=== PATIENT | female | born 1995 | race Two or more races ===

== ENCOUNTER 2017-02-05 13:02 | Inpatient (IN) | payer OTHER, MEDICAID ==
--- NOTE | 2017-02-05 13:20 | ER Document Report ---
ED Medical Screen (RME) - General Stated Complaint: PSYCH EVAL Notes: 31 yo female c/o suicidal thoughts. told therapist at [facility] she wanted to kill herself. + previous attempts. + plan. hx/o schizoaffective, bipolar, anxiety. Physical Exam - Vital signs Vitals: Temp Pulse Resp BP Pulse Ox 98.9 F 109 H 24 H 123/79 97 02/05/17 13:06 02/05/17 13:06 02/05/17 13:06 02/05/17 13:06 02/05/17 13:06 Course - Vital Signs Vital signs: Temp Pulse Resp BP Pulse Ox 98.9 F 109 H 24 H 123/79 97 02/05/17 13:06 02/05/17 13:06 02/05/17 13:06 02/05/17 13:06 02/05/17 13:06
--- NOTE | 2017-02-05 13:45 | EKG REPORT ---
SEVERITY:- ABNORMAL ECG - SINUS TACHYCARDIA NONSPECIFIC ST-T CHANGES- INFERIOR LEADS : Confirmed by: Kyle Roblero MD 05-Feb-2017 13:44:18
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
[2017-02-05 14:06] LABS: ABSOLUTE BASOPHILS # (AUTO) 0.1 10^3/uL (0.0-0.2); ABSOLUTE EOSINOPHILS # (AUTO) 0.9 10^3/uL (0.0-0.6); ABSOLUTE LYMPHOCYTES (AUTO) 1.6 10^3/uL (0.5-4.7); ABSOLUTE MONOCYTES (AUTO) 1.2 10^3/uL (0.1-1.4); ABSOLUTE NEUT (AUTO) 12.5 10^3/uL (1.7-8.2); BASOPHILS % (AUTO) 0.7 % (0-2); EOSINOPHILS % (AUTO) 5.6 % (0-6); HEMATOCRIT 37.4 % (36.0-47.0); HEMOGLOBIN 12.1 g/dL (12.0-15.5); HGB HCT DIFFERENCE -1.1; LYMPHOCYTES % (AUTO) 9.9 % (13-45); MEAN CORPUSCULAR HEMOGLOBIN 28.8 pg (27.0-33.4); MEAN CORPUSCULAR HGB CONC 32.3 g/dL (32.0-36.0); MEAN CORPUSCULAR VOLUME 89 fl (80-97); MONOCYTES % (AUTO) 7.4 % (3-13); RED BLOOD COUNT 4.21 10^6/uL (3.72-5.28); RED CELL DISTRIBUTION WIDTH 15.5 % (11.5-14.0); SEGMENTED NEUTROPHILS % (AUTO) 76.4 % (42-78); WHITE BLOOD COUNT 16.4 10^3/uL (4.0-10.5)
[2017-02-05 14:18] LABS: ALANINE AMINOTRANSFERASE 63 U/L (9-52); ALBUMIN 4.5 g/dL (3.5-5.0); ALCOHOL < 10 mg/dL (NONE DETECTED); ALKALINE PHOSPHATASE 130 U/L (38-126); ANION GAP 15 (5-19); ASPARTATE AMINO TRANSFERASE 31 U/L (14-36); BILIRUBIN,DIRECT 0.3 mg/dL (0.0-0.4); BILIRUBIN,TOTAL 0.4 mg/dL (0.2-1.3); BLOOD UREA NITROGEN 18 mg/dL (7-20); CALCIUM 10.3 mg/dL (8.4-10.2); CARBON DIOXIDE 22 mmol/L (22-30); CHLORIDE 113 mmol/L (98-107); CREATININE RESULT 2.33 mg/dL (0.52-1.25); GLUCOSE 97 mg/dL (75-110); POTASSIUM 3.9 mmol/L (3.6-5.0); SODIUM 150.2 mmol/L (137-145); TOTAL PROTEIN 8.1 g/dL (6.3-8.2)
[2017-02-05 14:36] LABS: APPEARANCE,URINE CLEAR; BILIRUBIN,URINE NEGATIVE (NEGATIVE); GLUCOSE, URINE NEGATIVE (NEGATIVE); KETONES,URINE NEGATIVE (NEGATIVE); LEUKOCYTE ESTERASE,URINE NEGATIVE (NEGATIVE); NITRITE,URINE NEGATIVE (NEGATIVE); PROTEIN,URINE NEGATIVE (NEGATIVE); URINE SPECIFIC GRAVITY 1.002; UROBILINOGEN,URINE NEGATIVE mg/dL (<2.0)
[2017-02-05 14:52] LABS: URINE BARBITURATES SCREEN NEGATIVE; URINE METHADONE SCREEN NEGATIVE; URINE OPIATES LOW NEGATIVE; URINE PHENCYCLIDINE SCREEN NEGATIVE
[2017-02-05 15:47] LABS: ADD ON TESTING BLD IN LAB ACKNOWLEDGE
[2017-02-05 16:05] LABS: CREATINE KINASE 126 U/L (30-135); LITHIUM 0.8 mEq/L (0.6-1.2); MAGNESIUM 2.6 mg/dL (1.6-2.3)
--- NOTE | 2017-02-05 17:00 | PSYCHOLOGICAL NOTE ---
Psych Note - Psych Note Psych Note: Pt states that she wants to commit suicide, states that she told her therapist this at [facility] and they called to bring her here. States that she has a hx of harming herself. States it hasnt happened recently. States that she does have a plan. States hx of schizoaffective, bipolar, and anxiety. Patient states that she came to [facility] because she is suicidal with a plan. Patient identifies wanting to cut her wrists and then her pills. Patient states that she put the knife to her wrist however "got scared" but has been getting "braver each day." Patient states that she is independent and wants to go to college however her parents will not let her. She continued disclosed that she never gets out and that her paternal grandmother recently had a stroke and she takes care of her. She continued to disclose that she gets excited if she is just going to the store. Patient states that she is 21 years old and should be able to get out and do things however her parents will not allow her to go out. He eats that her therapist has discussed vocational rehabilitation with her parents however her parents failed to follow through. She continue disclosed that she "just wants things to be done" and that she was feeling she was not "getting enough attention." Patient was unable to explain the statements further. Patient is alert and orientated to person, place, time and circumstance. Mood is euthymic with congruent affect. Patient endorses suicidal ideation with reported plan. Patient denies homicidal ideation. Patient denies auditory and visual hallucinations; no delusions are noted. Thought process is logical organized and linear. Conversational speech was within normal rate tone and prosody. Eye contact was well maintained. Intellectual abilities appear to be low average range. Attention and concentration are good. Insight, judgment, impulse control are poor. 300.00 (F41.9) unspecified anxiety disorder Per History Provided by Patient 295.70 (F25.0) schizoaffective disorder; bipolar type per history provided by patient Impression/plan: Patient is recommended to continue under IVC. Patient states she is suicidal with a plan. It is currently unclear patient's compliance with medications for her mental health. Patient will be reevaluated. Dr. Rogers was consulted on the care and management of this patient. Attending physician is in agreement with recommendations and disposition.
[2017-02-05] MEDS: NORMAL SALINE 1000 ML 1,000 ML IV PRN ×2 (19:14→21:05)
[2017-02-05] MEDS ORDERED: 1/2 NORMAL SALINE 2,000 ML IV ONE (20:50)
--- NOTE | 2017-02-05 21:21 | PDOC H&P ---
History of Present Illness Admission Date/PCP: 02/05/17 19:[address] [facility] Patient complains of: suicidal ideation History of Present Illness: KAMRAN MAGAÑA is a 21 year old female with underlying depression, and history of medication overdoses in the past, who presents to the emergency room for evaluation of above complaint. Was seen earlier today by psychiatry, and was placed on IVC precautions for suicidal ideation. Was sent to the emergency room for further evaluation. Workup in the emergency room revealed an elevated creatinine, with prior labs from May of last year at [facility] revealing a creatinine of 0.89. Emergency room physician has discussed the patient with on-call nephrology Dr. Melissa, who was comfortable having the patient managed at our facility and has recommended IV fluid along with renal ultrasound, which has been ordered by the emergency room physician. She states she is compliant with her medications. States her lithium dose may recently have been increased. Denies any medication overdose other than in the past, as noted above. Other than her suicidal ideation, patient has no specific complaints in terms of fever or chills. Occasional nausea and vomiting, but none for the past 3 weeks. She describes a two-year history of intermittent episodes of diarrhea. 2 episodes over the last 24 hours, with what she describes as "blotches" of bright red blood in each of these last 2 episodes. She is scheduled to have her first colonoscopy in March of this year. Patient has been discussed with emergency room physician who evaluated the patient. . Laboratory results are listed in [place] and are reviewed. X-ray summary--renal ultrasound has been ordered and is pending. EKG reviewed. No old EKG available for comparison. Social history/personal habits: Single. No children. Unemployed. Lives with her mother and stepfather. No use of tobacco alcohol or illicit drugs. Allergies/adverse reactions are listed in [place] and are reviewed. Home medications are reviewed and are to be reconciled by senior pharmacy technician in [place]. Home medications initially autopopulated into [facility] may not accurately reflect patient's true medications, dosages, and/or frequencies. ER has listed recommended meds per Psych in his notes. REVIEW OF SYSTEMS: Constitutional: No fever or chills. Eyes: No current vision complaints. ENT: Occasional mild dysphagia without aspiration, she feels secondary to long- standing reflux and heartburn. No hearing problems or complaints. Pulmonary: No current complaints. Cardiovascular: No current complaints, including chest pain. Gastrointestinal: Occasional reflux symptoms. Skin: No current complaints, including rashes. Hematologic: No unusual easy bruising or bleeding. Neurologic: No current complaints, including numbness or tingling. Musculoskeletal: No current complaints, including painful joints. Psychiatric: See history and present illness. Endocrine: No current complaints, including polyuria. Genitourinary: No current complaints, including dysuria. PHYSICAL EXAMINATION: 5 feet 4 inches tall. 102.5 kg. BMI 38.8 kg/m.Temperature 98.9. Pulse 109 and regular. Blood pressure 123/79. Respirations are 24 and unlabored. 97% saturation on room air. Obese otherwise well-developed female appearing approximately her stated age. Pleasant awake alert and cooperative. Somewhat anxious, and mildly tremulous, although no august agitation. Female emergency room sitter Liliane is present. Skin is warm and dry. No grossly obvious evidence of rash in areas of skin examined. No subcutaneous nodules palpated. ENT: Hearing grossly normal to normal conversation. Tongue midline on protrusion pink and slightly moist. Eyes: No scleral icterus. Pupils equal and reactive to light at 4 mm. [place] conjunctivae. Neck is supple and nontender to gentle active range of motion and palpation. Midline trachea. No palpable thyroid nodule mass enlargement or tenderness. Lymphatic: No palpable cervical or clavicular nodes. Neck and lymphatic exams limited by patient body habitus. Psychiatric: Reasonable insight into acute and chronic medical issues. Oriented to time location and why here. Lungs: Auscultation reveals clear and equal breath sounds bilaterally. No use of accessory respiratory muscles. Cardiovascular: Heart regular rate and rhythm, without gallop murmur or rub. No carotid or abdominal aortic bruits. No ankle or pedal edema. Faintly palpable dorsalis pedis pulses. Abdomen: soft, obese, nontender with positive bowel sounds. Unable to adequately evaluate abdomen for masses or organomegaly due to body habitus. Extremities: Feet are warm and dry. No calf tenderness to compression. No grossly obvious visual evidence of calf swelling. Gentle manipulation of lower extremities fails to reveal any obvious evidence of injury or instability to knees hips or ankles. Neurologic: Moves all 4 extremities grossly normally. Patellar reflexes 2+ and symmetric.. Absent Babinski. Light touch is intact at feet. Dorsiflexion and plantarflexion of feet 5 / 5 and symmetric. No rigidity. No ankle clonus. Past Medical History Cardiac Medical History: Denies: Congestive Heart Failure, DVT, Myocardial Infarction, Hyperlipidema, Hypertension, Pulmonary Embolism Pulmonary Medical History: Denies: Asthma, Chronic Obstructive Pulmonary Disease (COPD) EENT Medical History: Reports: Throat - Occasional mild dysphagia without aspiration, secondary to reflux, per patient. Denies: Eyes, Ears Neurological Medical History: Denies: Hemorrhagic CVA, Ischemic CVA, Seizures Endocrine Medical History: Denies: Diabetes Mellitus Type 1, Diabetes Mellitus Type 2, Hyperthyroidism, Hypothyroidism Renal/ Medical History: Reports: None GI Medical History: Reports: Gastroesophageal Reflux Disease, Other - Chronic intermittent diarrhea for 2 years. Recent "blotches" of bright red blood in stool. Intermittent nausea for the past year or so. None for 3 weeks. Denies: Cirrhosis, Hepatitis, Peptic Ulcer Disease Musculoskeltal Medical History: Reports: None Skin Medical History: Reports: None Psychiatric Medical History: Reports: Bipolar Disorder, Depression Denies: Alcohol Dependency, Substance Abuse, Tobacco Dependency Hematology: Reports: None Infectious Medical History: Denies: Hepatitis B, Hepatitis C Past Surgical History Past Surgical History: Reports: None Social History Information Source: Patient, Emergency Med Personnel, [facility] Records Lives with: Family Smoking Status: Never Smoker Frequency of Alcohol Use: Rare Drugs: None - Advance Directive Resuscitation Status: Full Code Surrogate healthcare decision maker:: Mother Family History Family History: Reviewed & Not Pertinent Parental Family History Reviewed: Yes Children Family History Reviewed: NA Sibling(s) Family History Reviewed.: Yes Medication/Allergy Home Medications: Aripiprazole [Abilify 30 MG Tablet] 30 mg PO QHS 02/05/17 Aripiprazole [Abilify] 15 mg PO QAM 02/05/17 Benztropine Mesylate [Cogentin 1 mg Tablet] 1 mg PO BID 02/05/17 Haloperidol [Haldol 5 mg Tablet] 5 mg PO BID 02/05/17 Haloperidol [Haldol 5 mg Tablet] 7.5 mg PO QHS 02/05/17 Hydroxyzine HCl [Atarax 25 mg Tablet] 25 mg PO TIDP PRN 02/05/17 [place]on Carbonate [Lennon Carbonate ER] 300 mg PO QAM 02/05/17 Lennon Carbonate [Lennon Carbonate ER] 900 mg PO QPM 02/05/17 Pantoprazole Sodium [Protonix] 40 mg PO DAILY 02/05/17 Quetiapine Fumarate [Seroquel] 25 mg PO DAILYP PRN 02/05/17 Allergies/Adverse Reactions: zolpidem [From Ambien] Adverse Reaction (Verified 02/05/17 21:05) feels "loopy" ssri Adverse Reaction (Unknown, Uncoded 02/05/17 21:05) worsening depression Physical Exam Vital Signs: Temp Pulse Resp BP Pulse Ox 98.9 F 109 H 24 H 123/79 97 02/05/17 13:06 02/05/17 13:06 02/05/17 13:06 02/05/17 13:06 02/05/17 13:06 Assessment & Plan - Diagnosis (1) ARF (acute renal failure) Qualifiers: Acute renal failure type: unspecified Qualified Code(s): N17.9 - Acute kidney failure, unspecified Is this a current diagnosis for this admission?: YesPlan: Uncertain etiology. Possibly prerenal. According to emergency room physician, Dr. Melissa, manufacturing production technician nephrology, did not feel current medications would likely lead to renal failure. IV fluids. Follow-up chemistry. Renal ultrasound. I have strongly encouraged patient to be careful getting out of bed , to avoid a fall with injury. Knee high SCDs for DVT prophylaxis, with recent notation of bright red blood and diarrhea, will forego Lovenox or heparin at this point in time. Also, patient will be up ad memo. Impression and plans were discussed with patient, who concurs. Time spent in evaluation and management of patient: 64 minutes. (2) Elevated LFTs Is this a current diagnosis for this admission?: YesPlan: Mild. Follow-up chemistry. (3) Hypernatremia Is this a current diagnosis for this admission?: YesPlan: Follow-up chemistry. (4) Rectal bleeding Is this a current diagnosis for this admission?: YesPlan: No ongoing evidence of active bleeding at the present time. Follow-up CBC. PT/ INR and PTT also. As noted above, will hold Lovenox or heparin at this point in time. (5) Suicidal ideation Is this a current diagnosis for this admission?: YesPlan: Suicide precautions. Psychiatric consult. IVC papers on chart. (6) Depression Qualifiers: Depression Type: unspecified Qualified Code(s): F32.9 - Major depressive disorder, single episode, unspecified Is this a current diagnosis for this admission?: YesPlan: Resume home medications as appropriate once these have been determined and reviewed. (7) Schizoaffective disorder Qualifiers: Schizoaffective disorder type: unspecified Qualified Code(s): F25.9 - Schizoaffective disorder, unspecified Is this a current diagnosis for this admission?: YesPlan: Resume home medications as appropriate once these have been determined and reviewed. - Inpatient Certification Based on my medical assessment, after consideration of the patient's comorbidities, presenting symptoms, or acuity I expect that the services needed warrant INPATIENT care.: Yes I certify that my determination is in accordance with my understanding of Medicare's requirements for reasonable and necessary INPATIENT services [42 CFR 412.3e].: Yes Medical Necessity: Need Close Monitoring Due to Risk of Patient Decompensation, Need For IV Fluids, Need For Continuous Telemetry Monitoring, Risk of Complication if Not Cared For in Hospital, Risk of Diagnosis Which Will Require Inpatient Eval/Care/Monitoring Post Hospital Care: D/C or Transfer Summary
[2017-02-05 22:40] LABS: ABSOLUTE BASOPHILS # (AUTO) 0.1 10^3/uL (0.0-0.2); ABSOLUTE EOSINOPHILS # (AUTO) 0.8 10^3/uL (0.0-0.6); ABSOLUTE MONOCYTES (AUTO) 1.2 10^3/uL (0.1-1.4); ABSOLUTE NEUT (AUTO) 11.6 10^3/uL (1.7-8.2); BASOPHILS % (AUTO) 0.9 % (0-2); EOSINOPHILS % (AUTO) 5.2 % (0-6); HEMATOCRIT 35.2 % (36.0-47.0); HEMOGLOBIN 11.1 g/dL (12.0-15.5); HGB HCT DIFFERENCE -1.9; LYMPHOCYTES % (AUTO) 12.8 % (13-45); MEAN CORPUSCULAR HEMOGLOBIN 28.4 pg (27.0-33.4); MEAN CORPUSCULAR HGB CONC 31.6 g/dL (32.0-36.0); MEAN CORPUSCULAR VOLUME 90 fl (80-97); MONOCYTES % (AUTO) 7.4 % (3-13); RED BLOOD COUNT 3.91 10^6/uL (3.72-5.28); RED CELL DISTRIBUTION WIDTH 15.7 % (11.5-14.0); SEGMENTED NEUTROPHILS % (AUTO) 73.7 % (42-78); WHITE BLOOD COUNT 15.8 10^3/uL (4.0-10.5)
[2017-02-05 22:54] LABS: PARTIAL THROMBOPLASTIN TIME 29.7 SEC (23.5-35.8); PROTHROMBIN TIME 13.5 SEC (11.4-15.4)
[2017-02-05 23:00] LABS: ANION GAP 12 (5-19); BLOOD UREA NITROGEN 18 mg/dL (7-20); CALCIUM 9.6 mg/dL (8.4-10.2); CARBON DIOXIDE 20 mmol/L (22-30); CHLORIDE 120 mmol/L (98-107); CREATININE RESULT 2.15 mg/dL (0.52-1.25); GLUCOSE 91 mg/dL (75-110); POTASSIUM 4.6 mmol/L (3.6-5.0); SODIUM 151.9 mmol/L (137-145)
[2017-02-05] MEDS: 1/2 NORMAL SALINE 1,000 ML IV PRN (23:32)
[2017-02-06] MEDS: 1/2 NORMAL SALINE 1,000 ML IV PRN ×4 (02:55→14:54)
[2017-02-06] MEDS: ACETAMINOPHEN 325 MG TABLET PO PRN ×3 (03:13→17:47)
[2017-02-06 06:54] LABS: ABSOLUTE BASOPHILS # (AUTO) 0.1 10^3/uL (0.0-0.2); ABSOLUTE EOSINOPHILS # (AUTO) 0.7 10^3/uL (0.0-0.6); ABSOLUTE MONOCYTES (AUTO) 0.9 10^3/uL (0.1-1.4); ABSOLUTE NEUT (AUTO) 8.8 10^3/uL (1.7-8.2); BASOPHILS % (AUTO) 0.8 % (0-2); EOSINOPHILS % (AUTO) 5.8 % (0-6); HEMATOCRIT 30.9 % (36.0-47.0); HEMOGLOBIN 10.2 g/dL (12.0-15.5); HGB HCT DIFFERENCE -0.3; LYMPHOCYTES % (AUTO) 15.7 % (13-45); MEAN CORPUSCULAR HEMOGLOBIN 29.6 pg (27.0-33.4); MEAN CORPUSCULAR HGB CONC 33.1 g/dL (32.0-36.0); MEAN CORPUSCULAR VOLUME 89 fl (80-97); MONOCYTES % (AUTO) 7.4 % (3-13); RED BLOOD COUNT 3.46 10^6/uL (3.72-5.28); RED CELL DISTRIBUTION WIDTH 15.7 % (11.5-14.0); SEGMENTED NEUTROPHILS % (AUTO) 70.3 % (42-78); WHITE BLOOD COUNT 12.6 10^3/uL (4.0-10.5)
[2017-02-06 07:08] LABS: ALANINE AMINOTRANSFERASE 55 U/L (9-52); ALKALINE PHOSPHATASE 91 U/L (38-126); ANION GAP 13 (5-19); ASPARTATE AMINO TRANSFERASE 24 U/L (14-36); BILIRUBIN,DIRECT 0.3 mg/dL (0.0-0.4); BILIRUBIN,TOTAL 0.3 mg/dL (0.2-1.3); BLOOD UREA NITROGEN 15 mg/dL (7-20); CALCIUM 8.5 mg/dL (8.4-10.2); CARBON DIOXIDE 16 mmol/L (22-30); CHLORIDE 122 mmol/L (98-107); CREATININE RESULT 2.03 mg/dL (0.52-1.25); GLUCOSE 93 mg/dL (75-110); POTASSIUM 3.9 mmol/L (3.6-5.0); SODIUM 150.8 mmol/L (137-145); TOTAL PROTEIN 5.9 g/dL (6.3-8.2)
[2017-02-06] MEDS ORDERED: (PENDING PHARMACY ID) (Hydroxyzine Hcl [Atarax 25 Mg Tablet] 25 MG) PO PRN (11:25)
--- NOTE | 2017-02-06 11:37 | PDOC PROGRESS REPORT ---
Subjective Progress Note for:: 02/06/17 Subjective:: Patient is drowsy but arousable. She has no complaints. She denies suicidal ideation at this time, but was sent over from psychiatry on involuntary commitment for suicidal ideation. She states that she has on high-dose lithium and this is been making her feel very thirsty. She has had generalized weakness for very long time. Patient denies fever, chills, headache, new focal weakness, chest pain, shortness of breath, abdominal pain, nausea, vomiting, diarrhea, constipation. Physical Exam Vital Signs: Temp Pulse Resp BP Pulse Ox 97.7 F 92 16 102/70 100 02/06/17 07:48 02/06/17 07:48 02/06/17 07:48 02/06/17 07:48 02/06/17 07:48 Intake & Output 02/05/17 02/06/17 02/07/17 06:59 06:59 06:59 Intake Total 670 Balance 670 Weight 103.1 kg GENERAL: No acute distress, obese HEENT: Conjunctiva clear, nonicteric, moist mucous membranes, no JVD, midline trachea RESPIRATORY: Clear to auscultation bilaterally, no wheezes, no rhonchi CARDIAC: Regular rate and rhythm, no murmurs/gallops/rubs ABDOMEN: Soft, nondistended, nontender, positive bowel sounds, no rebound, no guarding EXTREMETIES: No edema, cyanosis, clubbing NEUROLOGIC: Drowsy, oriented to person/place/time, CN's grossly intact, no focal deficits SKIN: No rash, wounds PSYCH: Depressed mood, flat affect Results Laboratory Results: 02/06/17 06:25 02/06/17 06:25 02/05/17 02/05/17 02/05/17 22:20 22:20 22:20 WBC 15.8 H RBC 3.91 Hgb 11.1 L Hct 35.2 L MCV 90 MCH 28.4 MCHC 31.6 L RDW 15.7 H Plt Count 351 Seg Neutrophils % 73.7 Lymphocytes % 12.8 L Monocytes % 7.4 Eosinophils % 5.2 Basophils % 0.9 Absolute Neutrophils 11.6 H Absolute Lymphocytes 2.0 Absolute Monocytes 1.2 Absolute Eosinophils 0.8 H Absolute Basophils 0.1 Sodium 151.9 H Potassium 4.6 Chloride 120 H Carbon Dioxide 20 L Anion Gap 12 BUN 18 Creatinine 2.15 H Est GFR ( Amer) 34 L Est GFR (Non-Af Amer) 28 L Glucose 91 Calcium 9.6 Total Bilirubin AST ALT Alkaline Phosphatase Total Protein Albumin TSH 3.65 02/06/17 02/06/17 06:25 06:25 WBC 12.6 H RBC 3.46 L Hgb 10.2 L Hct 30.9 L MCV 89 MCH 29.6 MCHC 33.1 RDW 15.7 H Plt Count 318 Seg Neutrophils % 70.3 Lymphocytes % 15.7 Monocytes % 7.4 Eosinophils % 5.8 Basophils % 0.8 Absolute Neutrophils 8.8 H Absolute Lymphocytes 2.0 Absolute Monocytes 0.9 Absolute Eosinophils 0.7 H Absolute Basophils 0.1 Sodium 150.8 H Potassium 3.9 Chloride 122 H Carbon Dioxide 16 L Anion Gap 13 BUN 15 Creatinine 2.03 H Est GFR ( Amer) 37 L Est GFR (Non-Af Amer) 30 L Glucose 93 Calcium 8.5 Total Bilirubin 0.3 AST 24 ALT 55 H Alkaline Phosphatase 91 Total Protein 5.9 L Albumin 3.0 L TSH Impressions: Renal Ultrasound 02/05/17 19:28 IMPRESSION: Minimal fullness of the left renal pelvis and I cannot exclude mild hydronephrosis. No other significant finding. Assessment & Plan - Diagnosis (1) Suicidal ideation Is this a current diagnosis for this admission?: YesPlan: Continue involuntary commitment. Consult Dr. Rogers of psychology. (2) ARF (acute renal failure) Qualifiers: Acute renal failure type: unspecified Qualified Code(s): N17.9 - Acute kidney failure, unspecified Is this a current diagnosis for this admission?: YesPlan: Likely secondary to dehydration and possibly lithium toxicity. Hold lithium. Continue IV fluids. Kidney function improving. (3) Dehydration Is this a current diagnosis for this admission?: YesPlan: Continue IV fluids. Monitor chemistry panel. (4) Depression Is this a current diagnosis for this admission?: YesPlan: Continue Abilify, Haldol. Hold Seroquel at this point as I'm concerned about patient being on 3 different antipsychotics. Hold lithium secondary to renal failure. Patient has been placed on involuntary commitment by psychiatry. (5) Hypernatremia Is this a current diagnosis for this admission?: YesPlan: Likely secondary to dehydration. Continue fluid resuscitation with hypotonic saline. (6) Rectal bleeding Is this a current diagnosis for this admission?: Yes - Time Time Spent with patient: 35 or more minutes
[2017-02-06] MEDS ORDERED: HYDROXYZINE PAMOATE 25 MG CAPSULE PO PRN (12:00)
[2017-02-06] MEDS ORDERED: LANSOPRAZOLE 30 MG TAB.RAP.DR PO ONE (13:00)
[2017-02-06] MEDS: BENZTROPINE MESYLATE 1 MG TABLET PO SCH (17:43)
[2017-02-06] MEDS: HALOPERIDOL 5 MG TABLET PO SCH ×2 (17:44→21:22)
[2017-02-06] MEDS: ARIPIPRAZOLE 5 MG TABLET PO SCH (21:22)
[2017-02-07] MEDS: ACETAMINOPHEN 325 MG TABLET PO PRN ×2 (02:01→12:10)
[2017-02-07] MEDS: 1/2 NORMAL SALINE 1,000 ML IV PRN ×2 (02:02→18:58)
[2017-02-07] MEDS: LANSOPRAZOLE 30 MG TAB.RAP.DR PO SCH (05:10)
[2017-02-07 05:16] LABS: ABSOLUTE BASOPHILS # (AUTO) 0.1 10^3/uL (0.0-0.2); ABSOLUTE EOSINOPHILS # (AUTO) 0.7 10^3/uL (0.0-0.6); ABSOLUTE LYMPHOCYTES (AUTO) 1.8 10^3/uL (0.5-4.7); ABSOLUTE MONOCYTES (AUTO) 0.7 10^3/uL (0.1-1.4); ABSOLUTE NEUT (AUTO) 7.8 10^3/uL (1.7-8.2); BASOPHILS % (AUTO) 0.6 % (0-2); EOSINOPHILS % (AUTO) 6.5 % (0-6); HEMATOCRIT 31.6 % (36.0-47.0); HEMOGLOBIN 10.2 g/dL (12.0-15.5); LYMPHOCYTES % (AUTO) 16.1 % (13-45); MEAN CORPUSCULAR HGB CONC 32.3 g/dL (32.0-36.0); MEAN CORPUSCULAR VOLUME 90 fl (80-97); MONOCYTES % (AUTO) 6.6 % (3-13); RED BLOOD COUNT 3.53 10^6/uL (3.72-5.28); RED CELL DISTRIBUTION WIDTH 15.8 % (11.5-14.0); SEGMENTED NEUTROPHILS % (AUTO) 70.2 % (42-78); WHITE BLOOD COUNT 11.2 10^3/uL (4.0-10.5)
[2017-02-07 05:39] LABS: ALANINE AMINOTRANSFERASE 53 U/L (9-52); ALBUMIN 3.1 g/dL (3.5-5.0); ALKALINE PHOSPHATASE 97 U/L (38-126); ANION GAP 13 (5-19); ASPARTATE AMINO TRANSFERASE 23 U/L (14-36); BILIRUBIN,DIRECT 0.2 mg/dL (0.0-0.4); BILIRUBIN,TOTAL 0.3 mg/dL (0.2-1.3); BLOOD UREA NITROGEN 12 mg/dL (7-20); CALCIUM 9.1 mg/dL (8.4-10.2); CARBON DIOXIDE 15 mmol/L (22-30); CHLORIDE 123 mmol/L (98-107); CREATININE RESULT 1.83 mg/dL (0.52-1.25); GLUCOSE 94 mg/dL (75-110); MAGNESIUM 2.3 mg/dL (1.6-2.3); POTASSIUM 3.9 mmol/L (3.6-5.0); SODIUM 150.9 mmol/L (137-145); TOTAL PROTEIN 6.1 g/dL (6.3-8.2)
[2017-02-07] MEDS ORDERED: (PENDING PHARMACY ID) (Aripiprazole [Abilify 30 Mg Tablet] 15 MG) PO SCH (08:00)
[2017-02-07] MEDS: HALOPERIDOL 5 MG TABLET PO SCH ×3 (09:32→22:06)
[2017-02-07] MEDS: ARIPIPRAZOLE 5 MG TABLET PO SCH ×2 (09:32→22:06)
[2017-02-07] MEDS: BENZTROPINE MESYLATE 1 MG TABLET PO SCH ×2 (09:32→17:43)
--- NOTE | 2017-02-07 22:01 | PDOC PROGRESS REPORT ---
Subjective Progress Note for:: 02/07/17 Subjective:: Patient has no new complaints. Denies SI, but affect unusual. C/o cough, nasal congestion. Patient denies fever, chills, headache, new focal weakness, chest pain, shortness of breath, abdominal pain, nausea, vomiting, diarrhea, constipation. Physical Exam Vital Signs: Temp Pulse Resp BP Pulse Ox 98.2 F 102 H 19 118/75 100 02/07/17 19:53 02/07/17 19:53 02/07/17 19:53 02/07/17 19:53 02/07/17 19:53 Intake & Output 02/06/17 02/07/17 02/08/17 06:59 06:59 06:59 Intake Total 670 52544 3646 Balance 670 09322 3646 Weight 103.1 kg 102.5 kg GENERAL: No acute distress, obese HEENT: Conjunctiva clear, nonicteric, moist mucous membranes, no JVD, midline trachea RESPIRATORY: Clear to auscultation bilaterally, no wheezes, no rhonchi CARDIAC: Regular rate and rhythm, no murmurs/gallops/rubs ABDOMEN: Soft, nondistended, nontender, positive bowel sounds, no rebound, no guarding EXTREMETIES: No edema, cyanosis, clubbing NEUROLOGIC: Alert, oriented to person/place/time, CN's grossly intact, no focal deficits SKIN: No rash, wounds PSYCH: Depressed mood, flat affect Results Laboratory Results: 02/07/17 04:06 02/07/17 04:06 02/07/17 02/07/17 02/07/17 04:06 04:06 09:13 WBC 11.2 H RBC 3.53 L Hgb 10.2 L Hct 31.6 L MCV 90 MCH 29.0 MCHC 32.3 RDW 15.8 H Plt Count 336 Seg Neutrophils % 70.2 Lymphocytes % 16.1 Monocytes % 6.6 Eosinophils % 6.5 H Basophils % 0.6 Absolute Neutrophils 7.8 Absolute Lymphocytes 1.8 Absolute Monocytes 0.7 Absolute Eosinophils 0.7 H Absolute Basophils 0.1 Sodium 150.9 H Potassium 3.9 Chloride 123 H Carbon Dioxide 15 L Anion Gap 13 BUN 12 Creatinine 1.83 H Est GFR ( Amer) 41 L Est GFR (Non-Af Amer) 34 L Glucose 94 Calcium 9.1 Magnesium 2.3 Total Bilirubin 0.3 AST 23 ALT 53 H Alkaline Phosphatase 97 Total Protein 6.1 L Albumin 3.1 L Stool Occult Blood NEGATIVE Impressions: Renal Ultrasound 02/05/17 19:28 IMPRESSION: Minimal fullness of the left renal pelvis and I cannot exclude mild hydronephrosis. No other significant finding. Chest X-Ray 02/07/17 13:27 IMPRESSION: NO ACUTE RADIOGRAPHIC FINDING IN THE CHEST. Assessment & Plan - Diagnosis (1) Suicidal ideation Is this a current diagnosis for this admission?: YesPlan: Continue involuntary commitment. Consult Dr. Rogers of psychology. (2) ARF (acute renal failure) Qualifiers: Acute renal failure type: unspecified Qualified Code(s): N17.9 - Acute kidney failure, unspecified Is this a current diagnosis for this admission?: YesPlan: Likely secondary to dehydration and possibly lithium toxicity. Hold lithium. Continue IV fluids. Kidney function improving. (3) Dehydration Is this a current diagnosis for this admission?: YesPlan: Continue IV fluids. Monitor chemistry panel. (4) Depression Is this a current diagnosis for this admission?: YesPlan: Continue Abilify, Haldol. Hold Seroquel at this point as I'm concerned about patient being on 3 different antipsychotics. Hold lithium secondary to renal failure. Patient has been placed on involuntary commitment by psychiatry. (5) Hypernatremia Is this a current diagnosis for this admission?: YesPlan: Likely secondary to dehydration. Continue fluid resuscitation with hypotonic saline. (6) Rectal bleeding Is this a current diagnosis for this admission?: YesPlan: Outpatient GI workup. H/H low but stable. (7) Allergic sinusitis Is this a current diagnosis for this admission?: YesPlan: Start Flonase. - Time Time Spent with patient: 25-34 minutes Anticipated discharge: Other - Inpatient psych Within: within 72 hours
[2017-02-07] MEDS: FLUTICASONE NASAL SPRAY 50 MCG/SPRY 120 SPRAY/16 GM NASL SCH (22:07)
[2017-02-07] MEDS: GUAIFENESIN 600 MG TABLET.SA PO SCH (22:08)
[2017-02-08] MEDS: 1/2 NORMAL SALINE 1,000 ML IV PRN ×4 (01:39→21:09)
[2017-02-08] MEDS: LANSOPRAZOLE 30 MG TAB.RAP.DR PO SCH (05:27)
[2017-02-08 06:35] LABS: ABSOLUTE BASOPHILS # (AUTO) 0.1 10^3/uL (0.0-0.2); ABSOLUTE EOSINOPHILS # (AUTO) 0.7 10^3/uL (0.0-0.6); ABSOLUTE LYMPHOCYTES (AUTO) 1.9 10^3/uL (0.5-4.7); ABSOLUTE MONOCYTES (AUTO) 0.8 10^3/uL (0.1-1.4); ABSOLUTE NEUT (AUTO) 8.2 10^3/uL (1.7-8.2); BASOPHILS % (AUTO) 0.6 % (0-2); EOSINOPHILS % (AUTO) 6.2 % (0-6); HEMATOCRIT 33.9 % (36.0-47.0); HEMOGLOBIN 10.8 g/dL (12.0-15.5); HGB HCT DIFFERENCE -1.5; LYMPHOCYTES % (AUTO) 16.3 % (13-45); MEAN CORPUSCULAR HEMOGLOBIN 28.7 pg (27.0-33.4); MEAN CORPUSCULAR VOLUME 90 fl (80-97); MONOCYTES % (AUTO) 6.8 % (3-13); RED BLOOD COUNT 3.77 10^6/uL (3.72-5.28); RED CELL DISTRIBUTION WIDTH 15.4 % (11.5-14.0); SEGMENTED NEUTROPHILS % (AUTO) 70.1 % (42-78); WHITE BLOOD COUNT 11.7 10^3/uL (4.0-10.5)
[2017-02-08 06:54] LABS: ANION GAP 14 (5-19); BLOOD UREA NITROGEN 11 mg/dL (7-20); CALCIUM 9.6 mg/dL (8.4-10.2); CARBON DIOXIDE 16 mmol/L (22-30); CHLORIDE 123 mmol/L (98-107); CREATININE RESULT 1.95 mg/dL (0.52-1.25); GLUCOSE 92 mg/dL (75-110); SODIUM 152.7 mmol/L (137-145)
--- NOTE | 2017-02-08 07:06 | PSYCHOLOGICAL NOTE ---
Psych Note - Psych Note Psych Note: Pt states that she wants to commit suicide, states that she told her therapist this at [facility] and they called to bring her here. States that she has a hx of harming herself. States it hasnt happened recently. States that she does have a plan. States hx of schizoaffective, bipolar, and anxiety. Clinician conducted a chart review; patient has been admitted to hospital for kidney failure. At this time she is not medically clear. No new concerns are noted, re-evaluation will be conducted. 300.00 (F41.9) unspecified anxiety disorder Per History Provided by Patient 295.70 (F25.0) schizoaffective disorder; bipolar type per history provided by patient Impression/plan: Patient is recommended to continue under IVC. Patient has stated she is suicidal with a plan. It is currently unclear patient's compliance with medications for her mental health. Patient will be reevaluated. Dr. Rogers was consulted on the care and management of this patient. Attending physician is in agreement with recommendations and disposition.
--- NOTE | 2017-02-08 07:21 | PSYCHOLOGICAL NOTE ---
Psych Note - Psych Note Psych Note: Pt states that she wants to commit suicide, states that she told her therapist this at [facility] and they called to bring her here. States that she has a hx of harming herself. States it hasnt happened recently. States that she does have a plan. States hx of schizoaffective, bipolar, and anxiety. Patient states that she does not have suicidal thoughts anymore. She continued to state that he thinks it might have been from feeling sick because of her kidneys. She states she was throwing up and in pain and thinks this is why she came to the ED. The patient again denies taking her medication incorrectly and states that the last time she overdoes was about one year ago. Clinician spoke with attending MD, patient will not be medically cleared possibly Friday. Patient is alert and orientated to person, place, time and circumstance. Mood is euthymic with congruent affect. Patient denies suicidal ideation. Patient denies homicidal ideation. Patient denies auditory and visual hallucinations; no delusions are noted. Thought process is logical organized and linear. Conversational speech was within normal rate tone and prosody. Eye contact was well maintained. Intellectual abilities appear to be low average range. Attention and concentration are good. Insight, judgment, impulse control are poor. 300.00 (F41.9) unspecified anxiety disorder Per History Provided by Patient 295.70 (F25.0) schizoaffective disorder; bipolar type per history provided by patient Impression/plan: Patient is recommended to continue under IVC. Patient stated she is suicidal with a plan when coming to ED. It is currently unclear patient' s compliance with medications for her mental health. Patient has extensive history of overdosing and mental health visits to [facility]. Patient will be reevaluated. Dr. Rogers was consulted on the care and management of this patient. Attending physician is in agreement with recommendations and disposition.
[2017-02-08] MEDS: HALOPERIDOL 5 MG TABLET PO SCH ×3 (09:15→21:08)
[2017-02-08] MEDS: BENZTROPINE MESYLATE 1 MG TABLET PO SCH ×2 (09:15→17:30)
[2017-02-08] MEDS: ARIPIPRAZOLE 5 MG TABLET PO SCH ×2 (09:16→21:08)
[2017-02-08] MEDS: GUAIFENESIN 600 MG TABLET.SA PO SCH ×2 (09:17→21:09)
[2017-02-08] MEDS: FLUTICASONE NASAL SPRAY 50 MCG/SPRY 120 SPRAY/16 GM NASL SCH ×2 (09:17→21:09)
--- NOTE | 2017-02-08 19:19 | PDOC PROGRESS REPORT ---
Subjective Progress Note for:: 02/08/17 Subjective:: The patient feels better. She believes the lithium had caused her symptomatology. She denies any new symptoms. Physical Exam Vital Signs: Temp Pulse Resp BP Pulse Ox 98.3 F 100 20 117/71 100 02/08/17 14:59 02/08/17 14:59 02/08/17 14:59 02/08/17 14:59 02/08/17 14:59 Intake & Output 02/07/17 02/08/17 02/09/17 06:59 06:59 06:59 Intake Total 95593 6807 3163 Balance 93381 6807 3163 Weight 102.5 kg Additional comments: GENERAL: No acute distress, obese HEENT: Conjunctiva clear, nonicteric, moist mucous membranes, no JVD, midline trachea RESPIRATORY: Clear to auscultation bilaterally, no wheezes, no rhonchi CARDIAC: Regular rate and rhythm, no murmurs/gallops/rubs ABDOMEN: Soft, nondistended, nontender, positive bowel sounds, no rebound, no guarding EXTREMETIES: No edema, cyanosis, clubbing NEUROLOGIC: Alert, oriented to person/place/time, CN's grossly intact, no focal deficits SKIN: No rash, wounds PSYCH: mood and affect seem normal Results Laboratory Results: 02/08/17 05:13 02/08/17 05:13 02/08/17 02/08/17 05:13 05:13 WBC 11.7 H RBC 3.77 Hgb 10.8 L Hct 33.9 L MCV 90 MCH 28.7 MCHC 32.0 RDW 15.4 H Plt Count 365 Seg Neutrophils % 70.1 Lymphocytes % 16.3 Monocytes % 6.8 Eosinophils % 6.2 H Basophils % 0.6 Absolute Neutrophils 8.2 Absolute Lymphocytes 1.9 Absolute Monocytes 0.8 Absolute Eosinophils 0.7 H Absolute Basophils 0.1 Sodium 152.7 H Potassium 4.0 Chloride 123 H Carbon Dioxide 16 L Anion Gap 14 BUN 11 Creatinine 1.95 H Est GFR ( Amer) 38 L Est GFR (Non-Af Amer) 32 L Glucose 92 Calcium 9.6 Impressions: Renal Ultrasound 02/05/17 19:28 IMPRESSION: Minimal fullness of the left renal pelvis and I cannot exclude mild hydronephrosis. No other significant finding. Chest X-Ray 02/07/17 13:27 IMPRESSION: NO ACUTE RADIOGRAPHIC FINDING IN THE CHEST. Assessment & Plan - Diagnosis (1) Suicidal ideation Is this a current diagnosis for this admission?: YesPlan: Seemingly resolved. This could have been a lithium intoxication. (2) ARF (acute renal failure) Qualifiers: Acute renal failure type: unspecified Qualified Code(s): N17.9 - Acute kidney failure, unspecified Is this a current diagnosis for this admission?: YesPlan: Improving with IV fluid hydration. (3) Dehydration Is this a current diagnosis for this admission?: Yes (4) Hypernatremia Is this a current diagnosis for this admission?: YesPlan: Continue IV fluids. We will continue to monitor. (5) Depression Is this a current diagnosis for this admission?: YesPlan: Continue current Rx except for the lithium.
[2017-02-08] MEDS: ACETAMINOPHEN 325 MG TABLET PO PRN (21:09)
[2017-02-09] MEDS: 1/2 NORMAL SALINE 1,000 ML IV PRN (06:05)
[2017-02-09] MEDS: LANSOPRAZOLE 30 MG TAB.RAP.DR PO SCH (06:06)
[2017-02-09 06:41] LABS: ANION GAP 15 (5-19); BLOOD UREA NITROGEN 12 mg/dL (7-20); CALCIUM 8.5 mg/dL (8.4-10.2); CARBON DIOXIDE 15 mmol/L (22-30); CHLORIDE 119 mmol/L (98-107); CREATININE RESULT 1.79 mg/dL (0.52-1.25); GLUCOSE 87 mg/dL (75-110); POTASSIUM 3.5 mmol/L (3.6-5.0); SODIUM 149.3 mmol/L (137-145)
[2017-02-09] MEDS: ARIPIPRAZOLE 5 MG TABLET PO SCH ×2 (08:33→21:32)
[2017-02-09] MEDS: BENZTROPINE MESYLATE 1 MG TABLET PO SCH ×2 (10:31→17:35)
[2017-02-09] MEDS: HALOPERIDOL 5 MG TABLET PO SCH ×3 (10:31→21:32)
[2017-02-09] MEDS: FLUTICASONE NASAL SPRAY 50 MCG/SPRY 120 SPRAY/16 GM NASL SCH ×2 (10:31→21:32)
[2017-02-09] MEDS: GUAIFENESIN 600 MG TABLET.SA PO SCH ×2 (10:34→21:32)
--- NOTE | 2017-02-09 10:42 | PDOC PROGRESS REPORT ---
Subjective Progress Note for:: 02/09/17 Subjective:: The patient continues to feel all better. She continues to believe that lithium caused to her presenting symptomatology. She specifically denies nausea vomiting abdominal pain. She feels her mood is much better. She is tolerating a diet. Physical Exam Vital Signs: Temp Pulse Resp BP Pulse Ox 98.0 F 86 20 106/60 100 02/09/17 08:07 02/09/17 08:07 02/09/17 08:07 02/09/17 08:07 02/09/17 08:07 Intake & Output 02/08/17 02/09/17 02/10/17 06:59 06:59 06:59 Intake Total 0616 6449 Balance 8441 6450 Additional comments: GENERAL: No acute distress, obese HEENT: Conjunctiva clear, nonicteric, moist mucous membranes, no JVD, midline trachea RESPIRATORY: Clear to auscultation bilaterally, no wheezes, no rhonchi CARDIAC: Regular rate and rhythm, no murmurs/gallops/rubs ABDOMEN: Soft, nondistended, nontender, positive bowel sounds, no rebound, no guarding EXTREMETIES: No edema, cyanosis, clubbing NEUROLOGIC: Alert, oriented to person/place/time, CN's grossly intact, no focal deficits SKIN: No rash, wounds PSYCH: mood and affect seem normal Results Laboratory Results: 02/08/17 05:13 02/09/17 05:39 02/09/17 05:39 Sodium 149.3 H Potassium 3.5 L Chloride 119 H Carbon Dioxide 15 L Anion Gap 15 BUN 12 Creatinine 1.79 H Est GFR ( Amer) 42 L Est GFR (Non-Af Amer) 35 L Glucose 87 Calcium 8.5 Impressions: Renal Ultrasound 02/05/17 19:28 IMPRESSION: Minimal fullness of the left renal pelvis and I cannot exclude mild hydronephrosis. No other significant finding. Chest X-Ray 02/07/17 13:27 IMPRESSION: NO ACUTE RADIOGRAPHIC FINDING IN THE CHEST. Assessment & Plan - Diagnosis (1) Suicidal ideation Is this a current diagnosis for this admission?: YesPlan: The patient denies any suicidal thinking. She feels her poor mood was due to lithium intoxication and she feels better now off of lithium. Psychiatry is following and will determine her disposition at this point. She is medically cleared. (2) ARF (acute renal failure) Qualifiers: Acute renal failure type: unspecified Qualified Code(s): N17.9 - Acute kidney failure, unspecified Is this a current diagnosis for this admission?: YesPlan: Renal function studies have improved. She is now tolerating food and drink. Will stop IV fluids. We'll continue to monitor labs. (3) Dehydration Is this a current diagnosis for this admission?: YesPlan: Dehydration is much improved. She now has a satisfactory oral intake. (4) Hypernatremia Is this a current diagnosis for this admission?: YesPlan: Hypernatremia has steadily improved and is now near normal. (5) Depression Is this a current diagnosis for this admission?: YesPlan: Rx is per psychiatry service. Disposition is per psychiatry service.
[2017-02-10 04:13] LABS: ABSOLUTE BASOPHILS # (AUTO) 0.1 10^3/uL (0.0-0.2); ABSOLUTE EOSINOPHILS # (AUTO) 0.8 10^3/uL (0.0-0.6); ABSOLUTE LYMPHOCYTES (AUTO) 2.4 10^3/uL (0.5-4.7); ABSOLUTE MONOCYTES (AUTO) 0.8 10^3/uL (0.1-1.4); ABSOLUTE NEUT (AUTO) 9.6 10^3/uL (1.7-8.2); BASOPHILS % (AUTO) 0.5 % (0-2); HEMATOCRIT 36.3 % (36.0-47.0); HEMOGLOBIN 11.8 g/dL (12.0-15.5); HGB HCT DIFFERENCE -0.9; LYMPHOCYTES % (AUTO) 17.2 % (13-45); MEAN CORPUSCULAR HEMOGLOBIN 28.7 pg (27.0-33.4); MEAN CORPUSCULAR HGB CONC 32.4 g/dL (32.0-36.0); MEAN CORPUSCULAR VOLUME 89 fl (80-97); RED BLOOD COUNT 4.09 10^6/uL (3.72-5.28); RED CELL DISTRIBUTION WIDTH 15.6 % (11.5-14.0); SEGMENTED NEUTROPHILS % (AUTO) 70.3 % (42-78); WHITE BLOOD COUNT 13.7 10^3/uL (4.0-10.5)
[2017-02-10 04:29] LABS: ANION GAP 18 (5-19); BLOOD UREA NITROGEN 12 mg/dL (7-20); CALCIUM 9.5 mg/dL (8.4-10.2); CARBON DIOXIDE 16 mmol/L (22-30); CHLORIDE 117 mmol/L (98-107); CREATININE RESULT 2.06 mg/dL (0.52-1.25); GLUCOSE 143 mg/dL (75-110); POTASSIUM 3.5 mmol/L (3.6-5.0); SODIUM 150.7 mmol/L (137-145)
[2017-02-10] MEDS: LANSOPRAZOLE 30 MG TAB.RAP.DR PO SCH (05:52)
[2017-02-10] MEDS: ARIPIPRAZOLE 5 MG TABLET PO SCH ×2 (08:40→21:50)
[2017-02-10] MEDS: HALOPERIDOL 5 MG TABLET PO SCH ×3 (09:37→21:50)
[2017-02-10] MEDS: GUAIFENESIN 600 MG TABLET.SA PO SCH ×2 (09:37→21:50)
[2017-02-10] MEDS: BENZTROPINE MESYLATE 1 MG TABLET PO SCH ×2 (09:37→18:39)
[2017-02-10] MEDS: FLUTICASONE NASAL SPRAY 50 MCG/SPRY 120 SPRAY/16 GM NASL SCH ×2 (09:39→21:50)
--- NOTE | 2017-02-10 16:53 | PDOC PROGRESS REPORT ---
Subjective Progress Note for:: 02/10/17 Subjective:: The patient has a background history of schizoaffective disorder and suicidal ideation. She was admitted in acute renal failure which was felt to be related to lithium. Her lithium dosage had been increased sometime before admission. Now off lithium, the patient feels much better overall. Her kidney function had gradually improved and IV fluids were discontinued. She is eating and drinking. Today the BUN is stable, creatinine is up, and her sodium is also up. IV fluids are to be restarted. She is admitted as an involuntary commitment. We are awaiting placement. Psychiatry is actively following. Physical Exam Vital Signs: Temp Pulse Resp BP Pulse Ox 97.6 F 100 16 114/74 100 02/10/17 07:51 02/10/17 14:00 02/10/17 07:51 02/10/17 07:51 02/10/17 07:51 Intake & Output 02/09/17 02/10/17 02/11/17 06:59 06:59 06:59 Intake Total 6413 3837 Balance 6413 3837 Additional comments: GENERAL: No acute distress, obese HEENT: Conjunctiva clear, nonicteric, moist mucous membranes, no JVD, midline trachea RESPIRATORY: Clear to auscultation bilaterally, no wheezes, no rhonchi CARDIAC: Regular rate and rhythm, no murmurs/gallops/rubs ABDOMEN: Soft, nondistended, nontender, positive bowel sounds, no rebound, no guarding EXTREMETIES: No edema, cyanosis, clubbing NEUROLOGIC: Alert, oriented to person/place/time, CN's grossly intact, no focal deficits SKIN: No rash, wounds PSYCH: mood and affect seem normal Results Laboratory Results: 02/10/17 03:47 02/10/17 03:47 02/10/17 02/10/17 03:47 03:47 WBC 13.7 H RBC 4.09 Hgb 11.8 L Hct 36.3 MCV 89 MCH 28.7 MCHC 32.4 RDW 15.6 H Plt Count 372 Seg Neutrophils % 70.3 Lymphocytes % 17.2 Monocytes % 6.0 Eosinophils % 6.0 Basophils % 0.5 Absolute Neutrophils 9.6 H Absolute Lymphocytes 2.4 Absolute Monocytes 0.8 Absolute Eosinophils 0.8 H Absolute Basophils 0.1 Sodium 150.7 H Potassium 3.5 L Chloride 117 H Carbon Dioxide 16 L Anion Gap 18 BUN 12 Creatinine 2.06 H Est GFR ( Amer) 36 L Est GFR (Non-Af Amer) 30 L Glucose 143 H Calcium 9.5 Impressions: Renal Ultrasound 02/05/17 19:28 IMPRESSION: Minimal fullness of the left renal pelvis and I cannot exclude mild hydronephrosis. No other significant finding. Chest X-Ray 02/07/17 13:27 IMPRESSION: NO ACUTE RADIOGRAPHIC FINDING IN THE CHEST. Assessment & Plan - Diagnosis (1) Suicidal ideation Is this a current diagnosis for this admission?: YesPlan: The patient denies suicidal thinking. She feels her poor mood was due to lithium intoxication and she feels better now off of lithium. Psychiatry is following and will determine her disposition when she is medically stable. The patient is under an involuntary commitment. We are currently awaiting placement per psychiatry. (2) ARF (acute renal failure) Qualifiers: Acute renal failure type: unspecified Qualified Code(s): N17.9 - Acute kidney failure, unspecified Is this a current diagnosis for this admission?: YesPlan: Off IV fluids, the BUN has remained stable. Creatinine is up to 2.06 and sodium is up to 150.7. We will restart hypotonic IV fluids. (3) Dehydration Is this a current diagnosis for this admission?: YesPlan: As above, restarting IV fluids. Will push oral fluids as well. (4) Hypernatremia Is this a current diagnosis for this admission?: YesPlan: Hypernatremia is worsening again. IV fluids as above. (5) Depression Is this a current diagnosis for this admission?: YesPlan: Treatment and disposition per psychiatry service.
[2017-02-10] MEDS: 1/2 NORMAL SALINE 1,000 ML IV PRN (19:19)
[2017-02-11] MEDS: 1/2 NORMAL SALINE 1,000 ML IV PRN ×2 (05:05→21:23)
[2017-02-11] MEDS: LANSOPRAZOLE 30 MG TAB.RAP.DR PO SCH (05:05)
[2017-02-11 07:57] LABS: ABSOLUTE BASOPHILS # (AUTO) 0.1 10^3/uL (0.0-0.2); ABSOLUTE EOSINOPHILS # (AUTO) 0.8 10^3/uL (0.0-0.6); ABSOLUTE LYMPHOCYTES (AUTO) 1.8 10^3/uL (0.5-4.7); ABSOLUTE MONOCYTES (AUTO) 0.8 10^3/uL (0.1-1.4); ABSOLUTE NEUT (AUTO) 9.1 10^3/uL (1.7-8.2); BASOPHILS % (AUTO) 0.7 % (0-2); EOSINOPHILS % (AUTO) 6.1 % (0-6); HEMATOCRIT 35.5 % (36.0-47.0); HEMOGLOBIN 11.6 g/dL (12.0-15.5); HGB HCT DIFFERENCE -0.7; LYMPHOCYTES % (AUTO) 14.6 % (13-45); MEAN CORPUSCULAR HEMOGLOBIN 28.8 pg (27.0-33.4); MEAN CORPUSCULAR HGB CONC 32.8 g/dL (32.0-36.0); MEAN CORPUSCULAR VOLUME 88 fl (80-97); MONOCYTES % (AUTO) 6.4 % (3-13); RED BLOOD COUNT 4.04 10^6/uL (3.72-5.28); SEGMENTED NEUTROPHILS % (AUTO) 72.2 % (42-78); WHITE BLOOD COUNT 12.6 10^3/uL (4.0-10.5)
[2017-02-11 08:07] LABS: ANION GAP 17 (5-19); BLOOD UREA NITROGEN 14 mg/dL (7-20); CALCIUM 9.6 mg/dL (8.4-10.2); CARBON DIOXIDE 18 mmol/L (22-30); CHLORIDE 115 mmol/L (98-107); CREATININE RESULT 2.04 mg/dL (0.52-1.25); GLUCOSE 98 mg/dL (75-110); POTASSIUM 3.5 mmol/L (3.6-5.0)
[2017-02-11] MEDS: ARIPIPRAZOLE 5 MG TABLET PO SCH ×2 (08:18→21:22)
--- NOTE | 2017-02-11 09:14 | PSYCHOLOGICAL NOTE ---
Psych Note - Psych Note Psych Note: Conducted check-in with patient who is a 21-year-old female admitted to [facility] hospitalist services due to kidney failure, thought to be related to her prescribed lithium. [facility] and was prompted to present to the ED. Patient was held under an involuntary commitment. Patient today states she is feeling very well , both emotionally and physically. Patient openly discusses her history to include numerous medication trials in previous hospitalizations. Patient denies any current suicidal thoughts or thoughts of self-harm such as cutting. Patient states she physically felt poorly for around 3 months, which she states coincides with the increase in her lithium dose. She identifies her symptoms as excessive and rapid weight gain, reflux, lethargy, depression, etc. Patient denies any depressive symptoms at this time. Patient reports in addition to her physical symptoms there were numerous social stressors within the family. Patient states her elderly grandmother is currently residing with them secondary to a stroke. She states she's been helping to care for her to include changing her diaper. Patient states she feels that she is better equipped to handle the stressors now that she is physically and emotionally feeling well. Patient reported no other complaints or concerns. She states she does engage in therapy with . Nj Paulino at [facility] biweekly as well as medication management with Mr. Carlin Coombs at [facility]. Should provided verbal consent to speak with her stepfather who is bedside. Patient's stepfather corroborates patient's reports in regards to physical symptoms coinciding with the increase in her lithium dose. Stepfather states he is not concerned for her emotional safety nor is he concerned that she would attempt to harm herself. He states they have, "been down that road," and states she is nowhere near where she was at that time emotionally. Stepfather states he is in agreement to monitor medications, patient's depressive symptoms , as well as continue to support her in following up with her treatment providers. Stepfather is also clear to states he believes her statements were misunderstood and states the patient made comments along the lines of she couldn 't do this anymore. Stepfather states the patient was referencing the physical symptoms and the stress not that she intended to harm herself. Patient is alert and oriented. Mood is calm, was smiling affect. Patient denies suicidal/homicidal ideations, intent, plan, means. Patient didn't denies A/VH; delusions not noted. Thought processes were organized, rational, and linear. Conversational speech was WNL for rate, tone, and prosody. Intellectual abilities were estimated within average range. Attention and focus were good. Insight, judgment, impulse control were fair - good. 300.00 (F41.9) Unspecified anxiety disorder Per History Provided by Patient 295.70 (F25.0) Schizoaffective disorder; bipolar type per history provided by patient Patient is psychiatrically cleared and recommended for recent of IVC. Patient no longer meets criteria per the [place] general statute 122C she denies SI/HI, is not experiencing command hallucinations in following through with commands, is not having thoughts of self-harm, etc. Patient has adequate support at home and good insight into her needs. Additionally, patient has adequate professional supports and is agreeable to follow-up with her therapist upon discharge. I consulted with Dr. Rogers in regards to the care and management of this patient. Hospitalist made aware and states he is in agreement with disposition and recommendations.
[2017-02-11] MEDS: FLUTICASONE NASAL SPRAY 50 MCG/SPRY 120 SPRAY/16 GM NASL SCH ×2 (10:03→21:22)
[2017-02-11] MEDS: BENZTROPINE MESYLATE 1 MG TABLET PO SCH ×2 (10:03→17:30)
[2017-02-11] MEDS: GUAIFENESIN 600 MG TABLET.SA PO SCH ×2 (10:04→21:22)
[2017-02-11] MEDS: HALOPERIDOL 5 MG TABLET PO SCH ×3 (10:04→21:22)
--- NOTE | 2017-02-11 16:07 | PDOC PROGRESS REPORT ---
Subjective Progress Note for:: 02/11/17 Subjective:: Patient seen on morning rounds. She is resting comfortably in bed. She denies any shortness of breath, chest pain or dyspnea. She denies any headache,or dizziness. She denies any nausea, vomiting, or diarrhea. She is interactive with examiner. She denies any suicidal or homicidal ideations. Physical Exam Vital Signs: Temp Pulse Resp BP Pulse Ox 98.1 F 98 14 110/79 99 02/11/17 08:05 02/11/17 08:05 02/11/17 08:05 02/11/17 08:05 02/11/17 08:05 Intake & Output 02/10/17 02/11/17 02/12/17 06:59 06:59 06:59 Intake Total 3837 5060 Balance 3837 5060 General appearance: PRESENT: no acute distress, obese, well-developed, well- nourished Head exam: PRESENT: atraumatic, normocephalic Eye exam: PRESENT: conjunctiva pink, EOMI, PERRLA. ABSENT: scleral icterus Ear exam: PRESENT: normal external ear exam Mouth exam: PRESENT: moist, tongue midline Neck exam: ABSENT: carotid bruit, JVD, lymphadenopathy, thyromegaly Respiratory exam: PRESENT: clear to auscultation ellie. ABSENT: rales, rhonchi, wheezes Cardiovascular exam: PRESENT: RRR. ABSENT: diastolic murmur, rubs, systolic murmur Pulses: PRESENT: normal dorsalis pedis pul Vascular exam: PRESENT: normal capillary refill Rectal exam: PRESENT: deferred Extremities exam: PRESENT: full ROM. ABSENT: calf tenderness, clubbing, pedal edema Neurological exam: PRESENT: alert, awake, oriented to person, oriented to place , oriented to time, oriented to situation, CN II-XII grossly intact. ABSENT: motor sensory deficit Psychiatric exam: PRESENT: appropriate affect, normal mood. ABSENT: homicidal ideation, suicidal ideation Skin exam: PRESENT: dry, intact, warm. ABSENT: cyanosis, rash Results Laboratory Results: 02/11/17 07:13 02/11/17 07:13 02/11/17 02/11/17 07:13 07:13 WBC 12.6 H RBC 4.04 Hgb 11.6 L Hct 35.5 L MCV 88 MCH 28.8 MCHC 32.8 RDW 15.0 H Plt Count 385 Seg Neutrophils % 72.2 Lymphocytes % 14.6 Monocytes % 6.4 Eosinophils % 6.1 H Basophils % 0.7 Absolute Neutrophils 9.1 H Absolute Lymphocytes 1.8 Absolute Monocytes 0.8 Absolute Eosinophils 0.8 H Absolute Basophils 0.1 Sodium 150.0 H Potassium 3.5 L Chloride 115 H Carbon Dioxide 18 L Anion Gap 17 BUN 14 Creatinine 2.04 H Est GFR ( Amer) 37 L Est GFR (Non-Af Amer) 30 L Glucose 98 Calcium 9.6 Impressions: Renal Ultrasound 02/05/17 19:28 IMPRESSION: Minimal fullness of the left renal pelvis and I cannot exclude mild hydronephrosis. No other significant finding. Chest X-Ray 02/07/17 13:27 IMPRESSION: NO ACUTE RADIOGRAPHIC FINDING IN THE CHEST. Assessment & Plan - Diagnosis (1) ARF (acute renal failure) Qualifiers: Acute renal failure type: unspecified Qualified Code(s): N17.9 - Acute kidney failure, unspecified Is this a current diagnosis for this admission?: YesPlan: This is improving with IV hydration. Will avoid nephrotoxic drugs and dosages. (3) Dehydration Is this a current diagnosis for this admission?: YesPlan: Improving with IV hydration (4) Hypernatremia Is this a current diagnosis for this admission?: YesPlan: Change to D5 and a half normal saline. (5) Suicidal ideation Is this a current diagnosis for this admission?: YesPlan: Resolved. Patient states she has not tolerated lithium therapy in the past. She seen by psych, her IVC has been cleared. Her medications have been adjusted. She is followed by a regular outpatient counselor. (6) Depression Is this a current diagnosis for this admission?: Yes (7) Elevated LFTs Is this a current diagnosis for this admission?: YesPlan: Most likely secondary to fatty liver. - Time Time Spent with patient: 25-34 minutes Critical Time spent with patient: 15-24 minutes Medications reviewed and adjusted accordingly: Yes Anticipated discharge: Home Within: within 48 hours
[2017-02-12] MEDS: LANSOPRAZOLE 30 MG TAB.RAP.DR PO SCH (05:44)
[2017-02-12 07:20] LABS: ANION GAP 15 (5-19); BLOOD UREA NITROGEN 17 mg/dL (7-20); CALCIUM 9.2 mg/dL (8.4-10.2); CARBON DIOXIDE 18 mmol/L (22-30); CHLORIDE 117 mmol/L (98-107); CREATININE RESULT 2.06 mg/dL (0.52-1.25); GLUCOSE 132 mg/dL (75-110); MAGNESIUM 2.2 mg/dL (1.6-2.3); POTASSIUM 3.5 mmol/L (3.6-5.0); SODIUM 149.7 mmol/L (137-145)
[2017-02-12] MEDS: ARIPIPRAZOLE 5 MG TABLET PO SCH (07:43)
[2017-02-12] MEDS: BENZTROPINE MESYLATE 1 MG TABLET PO SCH ×2 (09:37→17:21)
[2017-02-12] MEDS: GUAIFENESIN 600 MG TABLET.SA PO SCH (09:37)
[2017-02-12] MEDS: FLUTICASONE NASAL SPRAY 50 MCG/SPRY 120 SPRAY/16 GM NASL SCH (09:37)
[2017-02-12] MEDS: HALOPERIDOL 5 MG TABLET PO SCH ×2 (09:38→17:21)
[2017-02-12] MEDS ORDERED: POTASSIUM CHLORIDE 10 MEQ TABLET.SA PO SCH (10:00)
[2017-02-12 16:18] VITALS: BP 116/62
--- NOTE | 2017-02-12 16:48 | PDOC DISCHARGE SUMMARY ---
General - Admit/Disc Date/PCP Admission Date/Primary Care Provider: 02/05/17 20:51 Discharge Date: 02/12/17 - Discharge Diagnosis (1) ARF (acute renal failure) Is this a current diagnosis for this admission?: YesSummary: Improved somewhat. Did not change with IV fluids dramatically. Renal ultrasound normal. Will have patient follow up in [address] Melissa (2) Dehydration Is this a current diagnosis for this admission?: Yes (3) Hypernatremia Is this a current diagnosis for this admission?: YesSummary: Improved. Patient instructed to stay away from high sugar energy drinks and drink water (4) Suicidal ideation Is this a current diagnosis for this admission?: YesSummary: Resolved. IVC cleared can follow up with outpatient psych. Psych here recommended holding lithium (5) Depression Is this a current diagnosis for this admission?: YesSummary: Continue home meds (6) Elevated LFTs Is this a current diagnosis for this admission?: YesSummary: Improved - Additional Information Resuscitation Status: Full Code Discharge Diet: Regular, Other (Comments) - increase water Discharge Activity: Activity As Tolerated Home Medications: Aripiprazole [Abilify 30 MG Tablet] 30 mg PO QHS 02/05/17 Aripiprazole [Abilify] 15 mg PO QAM 02/05/17 Benztropine Mesylate [Cogentin 1 mg Tablet] 1 mg PO BID 02/05/17 Haloperidol [Haldol 5 mg Tablet] 5 mg PO BID 02/05/17 Haloperidol [Haldol 5 mg Tablet] 7.5 mg PO QHS 02/05/17 Hydroxyzine HCl [Atarax 25 mg Tablet] 25 mg PO TIDP PRN 02/05/17 Stevenson Carbonate [Stevenson Carbonate ER] 300 mg PO QAM 02/05/17 Stevenson Carbonate [Stevenson Carbonate ER] 900 mg PO QPM 02/05/17 Pantoprazole Sodium [Protonix] 40 mg PO DAILY 02/05/17 Quetiapine Fumarate [Seroquel] 25 mg PO DAILYP PRN 02/05/17 Fluticasone Propionate [Flonase Nasal [place] 50 Mcg/[place] 16 gm] 1 spray NASL Q12 spray.pump 02/12/17 History of Present Illness Patient complains of: Suicidal ideations History of Present Illness: Patient complains of: suicidal ideation History of Present Illness: KAMRAN MAGAÑA is a 21 year old female with underlying depression, and history of medication overdoses in the past, who presents to the emergency room for evaluation of above complaint. Was seen earlier today by psychiatry, and was placed on IVC precautions for suicidal ideation. Was sent to the emergency room for further evaluation. Workup in the emergency room revealed an elevated creatinine, with prior labs from May of last year at [facility] revealing a creatinine of 0.89. Emergency room physician has discussed the patient with on-call nephrology Dr. Melissa, who was comfortable having the patient managed at our facility and has recommended IV fluid along with renal ultrasound, which has been ordered by the emergency room physician. She states she is compliant with her medications. States her lithium dose may recently have been increased. Denies any medication overdose other than in the past, as noted above. Other than her suicidal ideation, patient has no specific complaints in terms of fever or chills. Occasional nausea and vomiting, but none for the past 3 weeks. She describes a two-year history of intermittent episodes of diarrhea. 2 episodes over the last 24 hours, with what she describes as "blotches" of bright red blood in each of these last 2 episodes. She is scheduled to have her first colonoscopy in March of this year. Patient has been discussed with emergency room physician who evaluated the patient. . Hospital Course Hospital Course: Patient was admitted to hospitalist service on telemetry with bedside sitter. She had IVC in place by psych for 48 hrs. She underwent renal ultrasound which was unremarkable. She was hydrated with 1/2 NS IV fluid with mild improvement in her BUN/Cr and hypernatremia. She was urinating well without difficulty. She was eating well. Psych here was consulted. Dr Rogers saw patient in consult. She recommended holding Stevenson for now, continue home meds otherwise. Within 2 days she no longer had suicidal ideations. IVC was lifted. She feels well. No further complaints Physical Exam Vital Signs: Temp Pulse Resp BP Pulse Ox 98.1 F 103 H 12 116/62 99 02/12/17 16:27 02/12/17 16:27 02/12/17 16:27 02/12/17 16:27 02/12/17 16:27 Intake & Output 02/11/17 02/12/17 02/13/17 06:59 06:59 06:59 Intake Total 5060 4000 2354 Output Total 900 Balance 5060 4000 1454 General appearance: PRESENT: no acute distress, obese, well-developed, well- nourished Head exam: PRESENT: atraumatic, normocephalic Eye exam: PRESENT: conjunctiva pink, EOMI, PERRLA. ABSENT: scleral icterus Ear exam: PRESENT: normal external ear exam Mouth exam: PRESENT: moist, tongue midline Neck exam: ABSENT: carotid bruit, JVD, lymphadenopathy, thyromegaly Respiratory exam: PRESENT: clear to auscultation ellie. ABSENT: rales, rhonchi, wheezes Cardiovascular exam: PRESENT: RRR. ABSENT: diastolic murmur, rubs, systolic murmur Pulses: PRESENT: normal dorsalis pedis pul Vascular exam: PRESENT: normal capillary refill GI/Abdominal exam: PRESENT: normal bowel sounds, soft. ABSENT: distended, guarding, mass, organolmegaly, rebound, tenderness Rectal exam: PRESENT: deferred Extremities exam: PRESENT: full ROM. ABSENT: calf tenderness, clubbing, pedal edema Neurological exam: PRESENT: alert, awake, oriented to person, oriented to place , oriented to time, oriented to situation, CN II-XII grossly intact. ABSENT: motor sensory deficit Psychiatric exam: PRESENT: appropriate affect, normal mood. ABSENT: homicidal ideation, suicidal ideation Skin exam: PRESENT: dry, intact, warm. ABSENT: cyanosis, rash Results Laboratory Results: 02/11/17 07:13 02/12/17 06:26 02/12/17 06:26 Sodium 149.7 H Potassium 3.5 L Chloride 117 H Carbon Dioxide 18 L Anion Gap 15 BUN 17 Creatinine 2.06 H Est GFR ( Amer) 36 L Est GFR (Non-Af Amer) 30 L Glucose 132 H Calcium 9.2 Magnesium 2.2 Impressions: Chest X-Ray 02/07/17 13:27 IMPRESSION: NO ACUTE RADIOGRAPHIC FINDING IN THE CHEST. Renal Ultrasound 02/12/17 10:53 IMPRESSION: NORMAL RENAL AND BLADDER ULTRASOUND. Qualifiers PATEINT BEING DISCHARGED WITH ANY OF THE FOLLOWING DIAGNOSIS?: No Plan Discharge Plan: Home with parents. Follow up with PCP and nephrology Time Spent: Less than 30 Minutes
== END 2017-02-12 18:57 | disposition home or self-care (01) | DRG 683 ==
LOC: EDBD → ER 13:02 → EH 19:56 → UNDOADMIN 19:56 → EH 20:51 → 4N 22:53
PROVIDERS: ADMIT Family Medicine; ATTEND Family Medicine
DX: N17.9 Acute kidney failure, unspecified (principal); E87.0 Hyperosmolality and hypernatremia; R45.851 Suicidal ideations; T50.995A Adverse effect of other drugs, medicaments and biological substances, initial encounter; E86.0 Dehydration; E66.9 Obesity, unspecified; K21.9 Gastro-esophageal reflux disease without esophagitis; F31.9 Bipolar disorder, unspecified; F25.9 Schizoaffective disorder, unspecified; R13.10 Dysphagia, unspecified; Z79.899 Other long term (current) drug therapy; Z88.8 Allergy status to other drugs, medicaments and biological substances; Z68.38 Body mass index [BMI] 38.0-38.9, adult
CPT/HCPCS: 36415; 71010; 76770; 80048; 80053; 80178; 80307; 81001; 82272; 82550; 83735; 84443; 84703; 85025; 85610; 85730; 93005; 93010; 96360; 99285; J3490; J7030

== ENCOUNTER 2017-02-19 01:25 | Emergency (ER) | payer OTHER, MEDICAID ==
[2017-02-19 02:46] LABS: APPEARANCE,URINE CLEAR; BILIRUBIN,URINE NEGATIVE (NEGATIVE); GLUCOSE, URINE NEGATIVE (NEGATIVE); KETONES,URINE NEGATIVE (NEGATIVE); LEUKOCYTE ESTERASE,URINE NEGATIVE (NEGATIVE); NITRITE,URINE NEGATIVE (NEGATIVE); PROTEIN,URINE NEGATIVE (NEGATIVE); URINE SPECIFIC GRAVITY 1.002; UROBILINOGEN,URINE NEGATIVE mg/dL (<2.0)
[2017-02-19 04:47] LABS: ABSOLUTE BASOPHILS # (AUTO) 0.1 10^3/uL (0.0-0.2); ABSOLUTE EOSINOPHILS # (AUTO) 0.6 10^3/uL (0.0-0.6); ABSOLUTE LYMPHOCYTES (AUTO) 2.3 10^3/uL (0.5-4.7); ABSOLUTE MONOCYTES (AUTO) 0.9 10^3/uL (0.1-1.4); ABSOLUTE NEUT (AUTO) 7.4 10^3/uL (1.7-8.2); BASOPHILS % (AUTO) 1.1 % (0-2); EOSINOPHILS % (AUTO) 4.9 % (0-6); HEMATOCRIT 38.2 % (36.0-47.0); HEMOGLOBIN 12.3 g/dL (12.0-15.5); HGB HCT DIFFERENCE -1.3; LYMPHOCYTES % (AUTO) 20.5 % (13-45); MEAN CORPUSCULAR HEMOGLOBIN 28.5 pg (27.0-33.4); MEAN CORPUSCULAR HGB CONC 32.1 g/dL (32.0-36.0); MEAN CORPUSCULAR VOLUME 89 fl (80-97); MONOCYTES % (AUTO) 7.9 % (3-13); RED CELL DISTRIBUTION WIDTH 15.7 % (11.5-14.0); SEGMENTED NEUTROPHILS % (AUTO) 65.6 % (42-78); WHITE BLOOD COUNT 11.2 10^3/uL (4.0-10.5)
[2017-02-19 05:02] LABS: ALANINE AMINOTRANSFERASE 80 U/L (9-52); ALBUMIN 4.4 g/dL (3.5-5.0); ALKALINE PHOSPHATASE 117 U/L (38-126); ANION GAP 18 (5-19); ASPARTATE AMINO TRANSFERASE 35 U/L (14-36); BILIRUBIN,DIRECT 0.3 mg/dL (0.0-0.4); BILIRUBIN,TOTAL 0.3 mg/dL (0.2-1.3); BLOOD UREA NITROGEN 13 mg/dL (7-20); CALCIUM 9.8 mg/dL (8.4-10.2); CARBON DIOXIDE 20 mmol/L (22-30); CHLORIDE 112 mmol/L (98-107); GLUCOSE 97 mg/dL (75-110); LIPASE 38.3 U/L (23-300); SODIUM 150.1 mmol/L (137-145); TOTAL PROTEIN 7.8 g/dL (6.3-8.2)
[2017-02-19] MEDS ORDERED: NORMAL SALINE 1000 ML 1,000 ML IV ONE (07:43)
[2017-02-19] MEDS ORDERED: ONDANSETRON HCL INJ/PF 4 MG/2 ML SDV IV ONE (07:43)
--- NOTE | 2017-02-19 07:48 | ER Document Report ---
ED GI/ - General Chief Complaint: Medical Complaint Stated Complaint: WEAKNESS,NAUSEA Mode of Arrival: Ambulatory Information source: Patient TRAVEL OUTSIDE OF THE [place] IN LAST 30 DAYS: No - HPI Patient complains to provider of: Abdominal pain Location: Other - Diffuse Vaginal bleeding (Compared to normal period): None Associated symptoms: Chest pain, Lightheaded, Nausea. denies: Chills, Coffee ground emesis, Constipation, Diarrhea, Dizzy, Dysuria, Fever, Hematuria, Hurts to breath, Inguinal mass, Loss of appetite, Shortness of breath, Sweaty, Syncope , Vomiting Notes: 02/19/17 07:45 Patient arrives with multiple complaints. She was recently seen here for suicidal ideation and was noted to have renal failure. In reviewing her records sounds like the renal failure somewhat chronic for her. Her workup was unremarkable here and her labs remained stable. She was to follow-up with Dr. Melissa of nephrology in the next week or 2. Patient arrives today with complaints of continued nausea with abdominal pain. No vomiting. No diarrhea. She tells me that she scheduled to have a colonoscopy in March due to blood in her stools which is a chronic problem. She also reports that she been having chest pains and chest rate. Head sharp, and intermittent. She denies any recent trips or surgeries. No leg pain or swelling. She denies any hormone use. No known cancer. No history of DVT or PE. No rashes. She denies any headache, blurred vision, numbness tingling or weakness. She also reports that her chest pain is worse when she drinks anything hot and she feels burning down her entire chest and into her upper abdomen. She denies any alcohol use, drug use, NSAID use. She does complains of mild generalized fatigue. - Related Data Allergies/Adverse Reactions: zolpidem [From Ambien] Adverse Reaction (Verified 02/19/17 02:19) feels "loopy" ssri Adverse Reaction (Unknown, Uncoded 02/19/17 02:19) worsening depression Past Medical History - Social History Smoking Status: Current Every Day Smoker Family History: Reviewed & Not Pertinent Patient has suicidal ideation: No Patient has homicidal ideation: No - Past Medical History Cardiac Medical History: Denies: Hx Congestive Heart Failure, Hx DVT, Hx Heart Attack, Hx Hypercholesterolemia, Hx Hypertension, Hx Pulmonary Embolism Pulmonary Medical History: Denies: Hx Asthma, Hx COPD Neurological Medical History: Denies: Hx Seizures Endocrine Medical History: Denies: Hx Diabetes Mellitus Type 1, Hx Diabetes Mellitus Type 2, Hx Hyperthyroidism, Hx Hypothyroidism Renal/ Medical History: Denies: Hx Peritoneal Dialysis GI Medical History: Reports: Hx Gastroesophageal Reflux Disease. Denies: Hx Cirrhosis, Hx Hepatitis Psychiatric Medical History: Reports: Hx Bipolar Disorder, Hx Depression, Hx Schizophrenia - schizoaffective disorder Infectious Medical History: Denies: Hx Hepatitis Surgical Hx: Negative - Immunizations Hx Diphtheria, Pertussis, Tetanus Vaccination: Yes Review of Systems - Review of Systems -: Yes All other systems reviewed and negative Physical Exam - Vital signs Vitals: Temp Pulse Resp BP Pulse Ox 98.4 F 109 H 18 108/77 97 02/19/17 02:20 02/19/17 02:20 02/19/17 02:20 02/19/17 02:20 02/19/17 02:20 - General General appearance: Appears well, Alert - HEENT Head: Normocephalic, Atraumatic Eyes: Normal Pupils: PERRL Ears: Normal Mucous membranes: Normal Pharynx: Normal Neck: Normal - Respiratory Respiratory status: No respiratory distress Breath sounds: Normal - Cardiovascular Rhythm: Regular Heart sounds: Normal auscultation Murmur: No - Abdominal Inspection: Normal Distension: No distension Bowel sounds: Normal Tenderness: Tender - Mild generalized tenderness. No: Guarding, Rebound Organomegaly: No organomegaly - Back Back: Normal, Nontender. No: CVA tenderness - Extremities General upper extremity: Normal inspection, Nontender, Normal color, Normal ROM , Normal temperature General lower extremity: Normal inspection, Nontender, Normal color, Normal ROM , Normal temperature, Normal weight bearing. No: Tender, Edema - Neurological Neuro grossly intact: Yes Cognition: Normal Orientation: AAOx4 Nolan Coma Scale Eye Opening: Spontaneous Nolan Coma Scale Verbal: Oriented Nolan Coma Scale Motor: Obeys Commands Amita Coma Scale Total: 15 Speech: Normal Motor strength normal: LUE, RUE, LLE, RLE Sensory: Normal - Psychological Associated symptoms: Normal affect, Normal mood - Skin Skin Temperature: Warm Skin Moisture: Dry Skin Color: Normal Course - Re-evaluation Re-evalutation: 02/19/17 11:06 Patient looks well in the emergency department today with stable vitals and is nontoxic-appearing. She has a benign exam at this time. Her lab work is all stable when compared to lab work from her previous visit. Potassium is stable. Patient has an EKG showing a sinus tachycardia but no other acute abnormalities. Troponin is negative. Due to the fact that she was having pleuritic type chest pain but d-dimer was ordered, this was mildly elevated, due to her kidney function a VQ scan was ordered to rule out PE. VQ scan was negative for PE and the patient is unlikely to have a PE as she has no PE risk factors. Patient does describe a burning sensation in her chest whenever she eats or drinks specifically when she drinks hot fluids, this could potentially be consistent with reflux and esophagitis. The patient is currently on Zantac, I will add a proton pump inhibitor as well as some Zofran for her symptoms. Patient was instructed to follow-up with her doctors as referred on her previous visit, follow-up sooner for increased pain, high fever, persistent vomiting, difficulty breathing, or any further concerns. The patient's emergency department workup and current diagnosis were explained to the patient and or family. Follow-up instructions were provided. Medications if prescribed were discussed. Instructions for when to return to the emergency department including specific worrisome symptoms were discussed with the patient and/or family. - Vital Signs Vital signs: Temp Pulse Resp BP Pulse Ox 98.1 F 108 H 18 112/79 100 02/19/17 09:54 02/19/17 05:26 02/19/17 09:54 02/19/17 09:54 02/19/17 09:54 - Laboratory Result Diagrams: 02/19/17 04:15 02/19/17 04:15 Laboratory results interpreted by me: 02/19/17 02/19/17 02/19/17 04:15 04:15 04:15 WBC 11.2 H RDW 15.7 H D-Dimer 0.73 H Sodium 150.1 H Chloride 112 H Carbon Dioxide 20 L Creatinine 2.00 H Est GFR ( Amer) 37 L Est GFR (Non-Af Amer) 31 L ALT 80 H - Diagnostic Test Radiology reviewed: Image reviewed, Reports reviewed - Chest x-ray negative, CT abdomen and pelvis negative, V/Q scan negative. - EKG Interpretation by Me EKG shows normal: Sinus rhythm, [place], Intervals, QRS Complexes, ST-T Waves Rate: Tachycardia Discharge - Discharge Clinical Impression: Renal failure Chest pain Qualifiers: Chest pain type: other chest pain Qualified Code(s): R07.89 - Other chest pain ; R07.8 - Other chest pain Abdominal pain Qualifiers: Abdominal location: unspecified location Qualified Code(s): R10.9 - Unspecified abdominal pain Condition: Stable Disposition: HOME, SELF-CARE Instructions: Abdominal Pain ([facility]), Chest Wall Pain ([facility]) Additional Instructions: Take medications as prescribed. Continue taking her Zantac. Follow-up with your doctor at the next available appointment for reevaluation. Follow-up sooner for increased pain, fever, difficulty breathing, or any further concerns.
[2017-02-19 11:13] VITALS: BP 117/83
--- NOTE | 2017-02-19 22:08 | EKG REPORT ---
SEVERITY:- OTHERWISE NORMAL ECG - SINUS TACHYCARDIA : Confirmed by: Jacquelyn Cary MD 19-Feb-2017 22:07:52
== END 2017-02-19 11:20 | disposition home or self-care (01) ==
LOC: ER 01:25
DX: N19 Unspecified kidney failure (principal); R10.84 Generalized abdominal pain; R07.89 Other chest pain; R11.0 Nausea; R53.1 Weakness; F17.200 Nicotine dependence, unspecified, uncomplicated; K21.9 Gastro-esophageal reflux disease without esophagitis
CPT/HCPCS: 93005; 99285; 96374; 36415; 83690; 85025; 81025; 80053; 81001; 84484; 85379; 71020; 78582; 74176; 93010; A9540; A9567; J2405; J7030; Q9969